=== PATIENT | male | born 1995 | race Caucasian/White ===

== ENCOUNTER 2020-03-12 14:01 | Outpatient (CLI) | payer BC ==
--- NOTE | 2020-03-12 14:33 | RAD ---
EXAM: Chest PA and lateral: HISTORY: Weight loss. Left clavicle lump. COMPARISON: None FINDINGS: Heart: Normal cardiac silhouette Aorta: Unremarkable Pulmonary vessels: Normal Costophrenic angles: Costophrenic angles are clear. Lungs: No consolidation or masses. Pneumothorax: No pneumothorax Osseous structures: No osseous abnormalities Incidentals: There is a small marker along the medial aspect left clavicle. No radiographic abnormali ty. In the left supraclavicular region, there is a slight asymmetric increased soft tissue density which has a masslike appearance. IMPRESSION: 1. No acute cardiopulmonary process 2. Increased soft tissue density in the left supraclavicular region as described above. Better interr ogation with postcontrast chest CT is recommended CODE T
== END 2020-03-12 14:02 | disposition home or self-care (01) ==
LOC: BICRAD 14:01
PROVIDERS: ATTEND Family Medicine
DX: R63.4 Abnormal weight loss (principal); M79.9 Soft tissue disorder, unspecified
CPT/HCPCS: 71046

== ENCOUNTER 2020-03-23 10:19 | Outpatient (CLI) | payer BC ==
[2020-03-23] MEDS ORDERED: Iopamidol-370 76% 500 ML 1 ML ONE (10:26)
--- NOTE | 2020-03-23 11:24 | CT ---
CT OF CHEST PERFORMED WITH CONTRAST ENHANCEMENT: HISTORY: Palpable nodule in the region of the left, area marked with a tablet. FINDINGS: The lungs are clear of any infiltrative process. There are no pulmonary nodules identified. Thoracic aorta is normal in caliber. Some residual thymic tissue present. No significant mediastina l, hilar, or axillary adenopathy. There is no evidence of any soft tissue or bony mass in the region of the marker along the proximal e nd of the left clavicle. No inflammatory process. Sternoclavicular joint appears unremarkable. Visualized liver parenchyma shows no focal findings. Visualized portions of the kidneys are unremark able. IMPRESSION: Unremarkable CT of the chest. No evidence of any soft tissue mass in the region of the palpable find ing along the left chest. POS: [facility]
== END 2020-03-23 10:20 | disposition home or self-care (01) ==
LOC: BICCT 10:19
PROVIDERS: ATTEND Family Medicine
DX: R93.89 Abnormal findings on diagnostic imaging of other specified body structures (principal)
CPT/HCPCS: 71260; Q9967